=== PATIENT | male | born 1930 | race Caucasian/White ===

== ENCOUNTER 2017-06-27 01:11 | Observation (INO) | payer MEDICARE ==
[2017-06-27] MEDS ORDERED: METHYLPREDNISOLONE PF 125MG/VIAL IVP ONE (01:34)
[2017-06-27] MEDS ORDERED: IPRATROPIUM/ALBUTEROL (0.5MG/3MG) NEB INH ONE (01:34)
--- NOTE | 2017-06-27 01:40 | Emergency Department Record ---
History of Present Illness - General Chief Complaint: Shortness of breath Stated Complaint: LIVIA Time Seen by Provider: 06/27/17 01:19 Source: Patient Mode of Arrival: Ambulatory Limitations: No limitations - History of Present Illness Initial Comments: pt states hes got the worst cough hes ever had that is productive yellow. no fevers, sweats or chills. no chest pain MD Complaint: Cough, Shortness of breath Onset/Timin -: Days(s) Severity: Moderate Consistency: Constant Improves With: Nothing Worsens With: Coughing Context: Recent illness Associated Symptoms: Cough, Sputum production Treatments Prior to Arrival: Other Treatment Prior to Arrival Comment:: NYQUIL - Related Data Home Medications Medication Instructions Recorded Confirmed Last Taken Tamsulosin HCl [Flomax] 0.4 mg PO DAILY 06/27/17 06/27/17 Unknown Allergies Allergy/AdvReac Type Severity Reaction Status Date / Time No Known Drug Allergies Allergy Verified 01/27/15 16:05 Travel Screening - Travel/Exposure Within Last 30 Days Have you traveled within the last 30 days?: No - Travel Symptoms Symptom Screening: None Review of Systems Reviewed: No additional complaints except as noted below Constitutional: Reports: As per HPI. Denies: Chills, Fever, Malaise, Night sweats, Weakness, Weight change Eyes: Reports: As per HPI. Denies: Eye discharge, Eye pain, Photophobia, Vision change ENT: Reports: As per HPI. Denies: Congestion, Dental pain, Ear pain, Epistaxis , Hearing loss, Throat pain Respiratory: Reports: As per HPI. Denies: Cough, Dyspnea, Hemoptysis, Stridor, Wheezes Cardiovascular: Reports: As per HPI. Denies: Arrhythmia, Chest pain, Dyspnea on exertion, Edema, Murmurs, Orthopnea, Palpitations, Paroxysmal nocturnal dyspnea, Rheumatic Fever, Syncope Endocrine: Reports: As per HPI. Denies: Fatigue, Heat or cold intolerance, Polydipsia, Polyuria Gastrointestinal: Reports: As per HPI. Denies: Abdominal pain, Constipation, Diarrhea, Hematemesis, Hematochezia, Melena, Nausea, Vomiting Genitourinary: Reports: As per HPI. Denies: Dysuria, Frequency, Hematuria, Incontinence, Retention, Testicular pain, Testicular mass, Urgency Musculoskeletal: Reports: As per HPI. Denies: Arthralgia, Back pain, Gout, Joint swelling, Myalgia, Neck pain Skin: Reports: As per HPI. Denies: Bruising, Change in color, Change in hair/ nails, Lesions, Pruritus, Rash Neurological: Reports: As per HPI. Denies: Abnormal gait, Confusion, Headache, Numbness, Paresthesias, Seizure, Tingling, Tremors, Vertigo, Weakness Psychiatric: Reports: As per HPI. Denies: Anxiety, Auditory hallucinations, Depression, Homicidal thoughts, Suicidal thoughts, Visual hallucinations Hematological/Lymphatic: Reports: As per HPI. Denies: Anemia, Blood Clots, Easy bleeding, Easy bruising, Swollen glands Past Medical History - SOCIAL HISTORY Smoking Status: Former smoker Alcohol Use: None Drug Use: None - RESPIRATORY Hx Respiratory Disorders: No - CARDIOVASCULAR Hx Cardio Disorders: Yes Hx Cardiac Cath: Yes Hx Heart Attack: Yes Hx Vascular Disease: Yes - NEURO Hx Neuro Disorders: No - GI Hx GI Disorders: Yes Hx Reflux: Yes Comment:: AAA - Hx Genitourinary Disorders: Yes Hx Bladder Problem: Yes Hx Prostate Problems: Yes - ENDOCRINE Hx Endocrine Disorders: No Hx Diabetes: No Hx Thyroid Disease: No - MUSCULOSKELETAL Hx Musculoskeletal Disorders: Yes Hx Back Injury: Yes - PSYCH Hx Psych Problems: No - HEMATOLOGY/ONCOLOGY Hx Hematology/Oncology Disorders: No Family Medical History Any Significant Family History?: No Physical Exam - General General Appearance: Alert, Oriented x3, Cooperative, Mild distress - Head Head exam: Normal inspection - Eye Eye exam: Normal appearance, PERRL, EOMI Pupils: Normal accommodation - ENT ENT exam: Normal exam, Mucous membranes moist, Normal external ear exam, Normal orophraynx Ear exam: Normal external inspection. negative: External canal tenderness Nasal Exam: Normal inspection. negative: Discharge, Sinus tenderness Mouth exam: Normal external inspection, Tongue normal Teeth exam: Normal inspection. negative: Dental caries Throat exam: Normal inspection. negative: Tonsillar erythema, Tonsillar exudate - Neck Neck exam: Normal inspection, Full ROM. negative: Tenderness - Respiratory Respiratory exam: Normal lung sounds bilaterally. negative: Respiratory distress - Cardiovascular Cardiovascular Exam: Regular rate, Normal rhythm, Normal heart sounds - GI/Abdominal GI/Abdominal exam: Soft, Normal bowel sounds. negative: Tenderness - Rectal Rectal exam: Deferred - exam: Deferred - Extremities Extremities exam: Normal inspection, Full ROM, Normal capillary refill. negative: Tenderness - Back Back exam: Reports: Normal inspection, Full ROM. Denies: Muscle spasm, Rash noted, Tenderness - Neurological Neurological exam: Alert, CN II-XII intact, Normal gait, Oriented X3 - Psychiatric Psychiatric exam: Normal affect, Normal mood - Skin Skin exam: Dry, Intact, Normal color, Warm Course Vital Signs 06/27/17 01:18 Temperature 97.5 F L Pulse Rate [ 68 Pulse Ox Probe] Respiratory 20 Rate Blood Pressure 151/108 [Left Arm] Pulse Ox 99 Medical Decision Making - Lab Data Result diagrams: 06/27/17 01:25 06/27/17 01:25 Disposition Disposition: Admit Decision to Admit: Admit from ER Decision to Admit Date: 06/27/17 Decision to Admit Time: 03:20 Forms: Patient Portal Access Quality - Quality Measures Quality Measures: N/A - Blood Pressure Screening Does Patient Have Any of the Following: No Blood Pressure Classification: Normal BP Reading Systolic Measurement: 117 Diastolic Measurement: 71 Screening for High Blood Pressure: < Normal BP, F/U Not Required > [G8783]
[2017-06-27 01:43] LABS: BASO % 0.2 % (0-6); EOS % 2.8 % (0-6); HEMOGLOBIN 11.1 gm/dl (14.0-18.0); LYMPH % 26.2 % (16-45); MEAN CELL VOLUME 102.9 fl (81-97); MEAN CORPUSCULAR HEMOGLOBIN 32.6 pg (27-33); MEAN CORPUSCULAR HGB CONC 31.7 g/dl (32-36); MEAN PLATELET VOLUME 10.3 fl (7.4-10.4); MONO % 9.8 % (0-9); PLATELET COUNT 166 K/uL (130-400); RED CELL DISTRIBUTION WIDTH 13.4 % (11.5-14.5); WHITE BLOOD COUNT W/O DIFF 9.4 K/uL (4.2-12.2)
[2017-06-27 01:55] LABS: BLOOD UREA NITROGEN 27 mg/dL (8-23); CREATININE 1.1 mg/dL (0.7-1.2); EST GLOMERULAR FILTRATION RATE > 60 mL/min
[2017-06-27 01:58] LABS: GLUCOSE,RANDOM 115 mg/dL (74-109)
[2017-06-27 02:06] LABS: INFLUENZA A NEGATIVE (NEGATIVE); INFLUENZA B NEGATIVE (NEGATIVE)
[2017-06-27] MEDS ORDERED: CEFTRIAXONE SODIUM 1 GM in 0.9 % SODIUM CHLORIDE 100ML 100 ML IVPB ONE (03:17)
[2017-06-27] MEDS ORDERED: AZITHROMYCIN 500 MG TABLET PO ONE (03:18)
[2017-06-27] MEDS ORDERED: ACETAMINOPHEN 500 MG TABLET PO PRN (04:03)
[2017-06-27] MEDS ORDERED: FLU VAC QS 2017-18 (INPT, 6MO+) 60MCG/0.5ML IM ONE (04:32)
[2017-06-27] MEDS ORDERED: SYNTHROID (DAW) 175MCG TABLET PO SCH (07:00)
[2017-06-27] MEDS ORDERED: DORZOLAMIDE HCL OP SCH (10:00)
[2017-06-27] MEDS ORDERED: TAMSULOSIN HCL 0.4 MG CAP.ER.24H PO SCH (10:00)
[2017-06-27] MEDS ORDERED: ASPIRIN 81 MG CHEWABLE TABLET PO SCH (10:00)
[2017-06-27] MEDS ORDERED: BRIMONIDINE TARTRATE OP SCH (10:00)
[2017-06-27] MEDS ORDERED: HYDROCHLOROTHIAZIDE 25 MG TABLET PO SCH (10:00)
[2017-06-27] MEDS ORDERED: PILOCARPINE HCL OP SCH (10:00)
[2017-06-27] MEDS ORDERED: METOPROLOL TART 25 MG TABLET PO SCH (10:00)
[2017-06-27] MEDS ORDERED: AMLODIPINE BESYLATE 5MG TAB PO SCH (10:00)
[2017-06-27] MEDS ORDERED: TIMOLOL MALEAT OP SCH (10:00)
[2017-06-27] MEDS ORDERED: LISINOPRIL PO SCH (10:00)
--- NOTE | 2017-06-27 10:33 | History & Physical ---
History of Present Illness - Date of Service Date of Service for History & Physical: 06/27/17 - History of Present Illness Admitting Diagnosis: lll pneumonia w intermittant hypoxia History of Present Illness: All is an 86 year-old male who presented to the ED on 06/26/17 with c/o productive cough with yellow sputum. He denied fever, chills, and chest pain. His history includes: ex-smoker, AAA, heart cath, GERD, and BPH. In the ED, his vital signs were: BP 151/108, HR 68, RR 20, T 97.5F and pulse ox of 99% on room air. Chest xray revealed a LLL pneumonia. CBC and CMP unremarkable. Influenza negative. EKG normal. He was admitted observation for pneumonia, he was started on azithromycin and rocephin. 06/27/17: Pt. states he feels great and he expresses his desire to go home. He is accompanied by his daughter and 2 granddaughters. Per nursing- pt. holds on to barnes ambulating, refuses to try a walker. Pt. denies history of falls or need for assistive devices, however, [facility] chart reveals a fall in 2014 and family states he as fallen. Plan to change abx to PO and discharge home today with home PT set up for evaluation, possible need for walker/home modifications. Travel Screening - Travel/Exposure Within Last 30 Days Have you traveled within the last 30 days?: No - Travel/Exposure Within Last Year Have you traveled outside the [place] in the last year?: No - Additonal Travel Details Have you been exposed to anyone with a communicable illness?: No - Travel Symptoms Symptom Screening: None, Fatigue Review of Systems Constitutional: Reports: As per HPI. Denies: Chills, Fever, Malaise, Night sweats, Weakness, Weight change Eyes: Reports: As per HPI. Denies: Eye discharge, Eye pain, Photophobia, Vision change ENT: Reports: As per HPI. Denies: Congestion, Dental pain, Ear pain, Epistaxis , Hearing loss, Throat pain Respiratory: Reports: Cough. Denies: Dyspnea, Hemoptysis, Stridor, Wheezes Cardiovascular: Reports: As per HPI. Denies: Arrhythmia, Chest pain, Dyspnea on exertion, Edema, Murmurs, Orthopnea, Palpitations, Paroxysmal nocturnal dyspnea, Rheumatic Fever, Syncope Endocrine: Reports: As per HPI. Denies: Fatigue, Heat or cold intolerance, Polydipsia, Polyuria Gastrointestinal: Reports: As per HPI. Denies: Abdominal pain, Constipation, Diarrhea, Hematemesis, Hematochezia, Melena, Nausea, Vomiting Genitourinary: Reports: As per HPI. Denies: Dysuria, Frequency, Hematuria, Incontinence, Retention, Testicular pain, Testicular mass, Urgency Musculoskeletal: Reports: As per HPI. Denies: Arthralgia, Back pain, Gout, Joint swelling, Myalgia, Neck pain Skin: Reports: As per HPI. Denies: Bruising, Change in color, Change in hair/ nails, Lesions, Pruritus, Rash Neurological: Reports: As per HPI. Denies: Abnormal gait, Confusion, Headache, Numbness, Paresthesias, Seizure, Tingling, Tremors, Vertigo, Weakness Psychiatric: Reports: As per HPI. Denies: Anxiety, Auditory hallucinations, Depression, Homicidal thoughts, Suicidal thoughts, Visual hallucinations Hematological/Lymphatic: Reports: As per HPI. Denies: Anemia, Blood Clots, Easy bleeding, Easy bruising, Swollen glands Past Medical History - SOCIAL HISTORY Smoking Status: Former smoker Alcohol Use: None Drug Use: None - RESPIRATORY Hx Respiratory Disorders: No - CARDIOVASCULAR Hx Cardio Disorders: Yes Hx Cardiac Cath: Yes Hx Heart Attack: Yes Hx Vascular Disease: Yes - NEURO Hx Neuro Disorders: No - GI Hx GI Disorders: Yes Hx Reflux: Yes Comment:: AAA - Hx Genitourinary Disorders: Yes Hx Bladder Problem: Yes Hx Prostate Problems: Yes - ENDOCRINE Hx Endocrine Disorders: Yes Hx Diabetes: No Hx Thyroid Disease: Yes - MUSCULOSKELETAL Hx Musculoskeletal Disorders: Yes Hx Back Injury: Yes - PSYCH Hx Psych Problems: No - HEMATOLOGY/ONCOLOGY Hx Hematology/Oncology Disorders: No Family Medical History Any Significant Family History?: No H&P Meds/Allergies - Allergies Allergies: Allergies Allergy/AdvReac Type Severity Reaction Status Date / Time No Known Drug Allergies Allergy Verified 01/27/15 16:05 - Home Medications Home Medications Medication Instructions Recorded Confirmed Last Taken Tamsulosin HCl [Flomax] 0.4 mg PO DAILY 06/27/17 06/27/17 Unknown Previous Rx's Medication Instructions Recorded Azithromycin [Zithromax] 250 mg PO DAILY #4 tab 06/27/17 Cefdinir 300 mg PO BID #9 capsule 06/27/17 Guaifenesin [Mucinex] 600 mg PO BID #14 tabcr 06/27/17 - Active Medications Active Medications: Current Medications Acetaminophen (Tylenol 500mg Tab) 1,000 mg PO Q6H PRN PRN Reason: PAIN/TEMP Amlodipine Besylate (Norvasc) 10 mg PO DAILY [facility] Last Admin: 06/27/17 10:04 Dose: 10 mg Aspirin (Aspirin Chewable) 81 mg PO DAILY [facility] Last Admin: 06/27/17 10:05 Dose: 81 mg Atorvastatin Calcium (Lipitor) 10 mg PO QHS [facility] Azithromycin (Zithromax) 250 mg PO DAILY [facility] Stop: 07/02/17 10:01 Cefdinir (Cefdinir) 300 mg PO BID [facility] Stop: 07/01/17 22:01 Hydrochlorothiazide (Hctz 25mg) 25 mg PO DAILY [facility] Last Admin: 06/27/17 10:04 Dose: 25 mg Levothyroxine Sodium (Synthroid) 175 mcg PO DAILYTHY [facility] Last Admin: 06/27/17 07:52 Dose: 175 mcg Metoprolol Tartrate (Lopressor) 25 mg PO BID [facility] Last Admin: 06/27/17 10:04 Dose: 25 mg Non-Formulary Medication (Brimonidine Tartrate [Brimonidine Tartrate]) 1 drop OP TID [facility] Non-Formulary Medication (Dorzolamide Hcl/Timolol Maleat [Cosopt Eye Drops]) 1 drop OP BID [facility] Non-Formulary Medication (Lisinopril [Zestril]) 2 tab PO DAILY [facility] Non-Formulary Medication (Pilocarpine Hcl [Isopto Carpine]) 1 drop OP TID [facility] Non-Formulary Medication (Terazosin Hcl [Terazosin Hcl]) 2 tab PO QHS [facility] Tamsulosin HCl (Flomax) 0.4 mg PO DAILY [facility] Last Admin: 06/27/17 10:05 Dose: 0.4 mg Physical Exam - Vital Signs Vital Signs: Vital Signs - Last 24 Hrs Temp Pulse Resp BP Pulse Ox 06/27/17 10:00 97.9 F 69 16 143/62 94 L 06/27/17 05:30 97 06/27/17 04:17 97.6 F 64 19 115/54 95 - General General Appearance: Alert, Oriented x3, Cooperative, No acute distress Limitations: Other (uses barnes/furniture for help ambulating) - Head Head exam: Normal inspection - Eye Eye exam: Normal appearance, PERRL, EOMI Pupils: Normal accommodation - ENT ENT exam: Normal exam, Mucous membranes moist, Normal external ear exam, Normal orophraynx Ear exam: Normal external inspection. negative: External canal tenderness Nasal Exam: Normal inspection. negative: Discharge, Sinus tenderness Mouth exam: Normal external inspection, Tongue normal Teeth exam: Normal inspection. negative: Dental caries Throat exam: Normal inspection. negative: Tonsillar erythema, Tonsillar exudate - Neck Neck exam: Normal inspection, Full ROM. negative: Tenderness - Respiratory Respiratory exam: Normal lung sounds bilaterally. negative: Respiratory distress - Cardiovascular Cardiovascular Exam: Regular rate, Normal rhythm, Normal heart sounds - GI/Abdominal GI/Abdominal exam: Soft, Normal bowel sounds. negative: Tenderness - Rectal Rectal exam: Deferred - exam: Deferred - Extremities Extremities exam: Normal inspection, Full ROM, Normal capillary refill. negative: Tenderness - Back Back exam: Reports: Normal inspection, Full ROM. Denies: Muscle spasm, Rash noted, Tenderness - Neurological Neurological exam: Alert, CN II-XII intact, Normal gait, Oriented X3 - Psychiatric Psychiatric exam: Normal affect, Normal mood - Skin Skin exam: Dry, Intact, Normal color, Warm Results - Labs Result Diagrams: 06/27/17 01:25 06/27/17 01:25 - Imaging and Cardiology Chest x-ray Status: Pending, Image reviewed Additional Comments: LLL pneumonia VTE H&P Assessment - Risk for VTE Risk for VTE: Yes Risk Level: Low Risk Assessment Date: 06/27/17 Risk Assessment Time: 10:29 VTE Orders Placed or Will Be Placed: No VTE Reason for No Prophylaxis: Not Indicated (Pt. will be discharged home this afternoon, mobility not impaired) Plan - Detailed Diagnosis and Plan (1) Left lower lobe pneumonia Status: Acute Base Code: J18.1 - LOBAR PNEUMONIA, UNSPECIFIED ORGANISM Comment: 06/27/17: Pt. presented to the ED on evening of 06/26/17 with shortness of breath and cough. Chest xray image revealed LLL pneumonia. 1g rocephin and 500mg azithromycin administered in the ED, changed to PO today and plan to d/c home this afternoon. Pt's vital signs and labs have remained stable. (2) Weakness Status: Acute Base Code: R53.1 - WEAKNESS Comment: 06/27/17: Nursing staff noted that pt. using barnes/furniture for help ambulating, pt. refuses to use a walker. Pt. denies hx of fall, however, he has an ED visist in 2015 for a fall and family states he has fallen. Plan to d/c with home PT to evaluate for need for assistive devices/home modifications. (3) At risk for deep venous thrombosis Status: Acute Base Code: Z91.89 - [facility] PERSONAL RISK FACTORS, NOT ELSEWHERE CLASSIFIED Comment: 06/27/17: Pt. is at low risk for DVT based on age and comorbidities. Mobility not impaired at this time, plan to d/c home today. Will start lovenox if pt. admitted greater than 24 hours. (4) Full code status Status: Acute Base Code: Z78.9 - OTHER SPECIFIED HEALTH STATUS Comment: 06/27: Pt. is a full code
--- NOTE | 2017-06-27 10:34 | Discharge Summary ---
Providers Discharge Summary Date: 06/27/17 Date of admission: 06/27/17 03:46 Expected Date of Discharge: 06/27/17 Attending physician: DANNY SIERRA Primary care physician: KATHRYN gomez Sevier Physical Exam - Vital Signs Vital Signs: Vital Signs - Last 24 Hrs Temp Pulse Resp BP Pulse Ox 06/27/17 10:00 97.9 F 69 16 143/62 94 L 06/27/17 05:30 97 06/27/17 04:17 97.6 F 64 19 115/54 95 - General General Appearance: Alert, Oriented x3, Cooperative, Mild distress Limitations: No limitations - Head Head exam: Normal inspection - Eye Eye exam: Normal appearance, PERRL, EOMI Pupils: Normal accommodation - ENT ENT exam: Normal exam, Mucous membranes moist, Normal external ear exam, Normal orophraynx Ear exam: Normal external inspection. negative: External canal tenderness Nasal Exam: Normal inspection. negative: Discharge, Sinus tenderness Mouth exam: Normal external inspection, Tongue normal Teeth exam: Normal inspection. negative: Dental caries Throat exam: Normal inspection. negative: Tonsillar erythema, Tonsillar exudate - Neck Neck exam: Normal inspection, Full ROM. negative: Tenderness - Respiratory Respiratory exam: Normal lung sounds bilaterally. negative: Respiratory distress - Cardiovascular Cardiovascular Exam: Regular rate, Normal rhythm, Normal heart sounds - GI/Abdominal GI/Abdominal exam: Soft, Normal bowel sounds. negative: Tenderness - Rectal Rectal exam: Deferred - exam: Deferred - Extremities Extremities exam: Normal inspection, Full ROM, Normal capillary refill. negative: Tenderness - Back Back exam: Reports: Normal inspection, Full ROM. Denies: Muscle spasm, Rash noted, Tenderness - Neurological Neurological exam: Alert, CN II-XII intact, Normal gait, Oriented X3 - Psychiatric Psychiatric exam: Normal affect, Normal mood - Skin Skin exam: Dry, Intact, Normal color, Warm Hospitalization - Hospitalization Admission Diagnosis: lll pneumonia w intermittant hypoxia - Problem List/Discharge Diagnosis (1) Left lower lobe pneumonia Status: Acute Base Code: J18.1 - LOBAR PNEUMONIA, UNSPECIFIED ORGANISM Comment: 06/27/17: Pt. presented to the ED on evening of 06/26/17 with shortness of breath and cough. Chest xray image revealed LLL pneumonia. 1g rocephin and 500mg azithromycin administered in the ED, changed to PO today and plan to d/c home this afternoon. Pt's vital signs and labs have remained stable. (2) Weakness Status: Acute Base Code: R53.1 - WEAKNESS Comment: 06/27/17: Nursing staff noted that pt. using barnes/furniture for help ambulating, pt. refuses to use a walker. Pt. denies hx of fall, however, he has an ED visist in 2015 for a fall and family states he has fallen. Plan to d/c with home PT to evaluate for need for assistive devices/home modifications. (3) At risk for deep venous thrombosis Status: Acute Base Code: Z91.89 - OTH PERSONAL RISK FACTORS, NOT ELSEWHERE CLASSIFIED Comment: 06/27/17: Pt. is at low risk for DVT based on age and comorbidities. Mobility not impaired at this time, plan to d/c home today. Will start lovenox if pt. admitted greater than 24 hours. (4) Full code status Status: Acute Base Code: Z78.9 - OTHER SPECIFIED HEALTH STATUS Comment: 06/27: Pt. is a full code - Hospitalization Course Disposition: Home Health Service Hospital Course: All is an 86 year-old male who presented to the ED on 06/26/17 with c/o productive cough with yellow sputum. He denied fever, chills, and chest pain. His history includes: ex-smoker, AAA, heart cath, GERD, and BPH. In the ED, his vital signs were: BP 151/108, HR 68, RR 20, T 97.5F and pulse ox of 99% on room air. Chest xray revealed a LLL pneumonia. CBC and CMP unremarkable. Influenza negative. EKG normal. He was admitted observation for pneumonia, he was started on azithromycin and rocephin. 06/27/17: Pt. states he feels great and he expresses his desire to go home. He is accompanied by his daughter and 2 granddaughters. Per nursing- pt. holds on to barnes ambulating, refuses to try a walker. Pt. denies history of falls or need for assistive devices, however, [facility] chart reveals a fall in 2014 and family states he as fallen. Plan to change abx to PO and discharge home today with home PT set up for evaluation, possible need for walker/home modifications. Condition at Discharge: (2) Stable Discharge Diagnosis: LLL pneumonia VTE Discharge VTE Reason For No Overlap Therapy: Treatment Not Tolerated (Mobility not impaired) Discharge Medications - Discharge Medications Prescriptions: Azithromycin [Zithromax] 250 mg PO DAILY #4 tab Cefdinir 300 mg PO BID #9 capsule Guaifenesin [Mucinex] 600 mg PO BID #14 tabcr Home Medications: Ambulatory Orders Aspirin Chewable 81 mg PO DAILY 08/15/13 [Last Taken 01/27/15] Atorvastatin Calcium [Lipitor] 10 mg PO QHS 08/15/13 [Last Taken 01/27/15] Brimonidine Tartrate 1 drop OP TID 08/15/13 [Last Taken 01/27/15] Dorzolamide HCl/Timolol Maleat [Cosopt Eye Drops] 1 drop OP BID 08/15/13 [Last Taken 01/27/15] Hydrochlorothiazide [Hctz] 25 mg PO DAILY 08/15/13 [Last Taken 01/27/15] Levothyroxine Sodium [Levoxyl] 175 mcg PO DAILY 08/15/13 [Last Taken 01/27/15] Lisinopril [Zestril] 2 tab PO DAILY 08/15/13 [Last Taken 01/27/15] Metoprolol Tartrate [Lopressor] 25 mg PO BID 08/15/13 [Last Taken 01/27/15] Pilocarpine HCl [Isopto Carpine] 1 drop OP TID 08/15/13 [Last Taken 01/27/15] Terazosin HCl 2 tab PO QHS 08/15/13 [Last Taken 01/27/15] Amlodipine Besylate [Norvasc] 10 mg PO DAILY 01/27/15 [Last Taken 01/27/15] Azithromycin [Zithromax] 250 mg PO DAILY #4 tab 06/27/17 [Last Taken Unknown] Cefdinir 300 mg PO BID #9 capsule 06/27/17 [Last Taken Unknown] Guaifenesin [Mucinex] 600 mg PO BID #14 tabcr 06/27/17 [Last Taken Unknown] Tamsulosin HCl [Flomax] 0.4 mg PO DAILY 06/27/17 [Last Taken Unknown] Discharge Plan - Discharge Instructions Activity at Discharge: As Per Physical Therapy (Home physical therapy will be arranged), Increase Activity as Tolerated Diet at Discharge: Regular Diet Instructions: Bacterial Pneumonia (DC) Additional Inst[facility] and make a hospitalization follow up appointment within 5 days Return to the ED if you experience any worsening shortness of breath, fever, weakness, or for any chest pain [facility] [phone] will call Thursday Quality Measures - Quality Measures Quality Measures: Advance Directives, Documentation of Current Medications in Medical Record, Elder Maltreatment Screen and Follow-Up Plan, Screening for High Blood Pressure and F/U Documented - Current Medications Quality Measure: Measure #130: Documentation of Current Medications Documentation of Current Medications: <Current Medications Documented/Reviewed> [G8427] - Blood Pressure Screening Quality Measure: Screening for High Blood Pressure and Follow-Up Documented Does Patient Have Any of the Following: Active Dx of HTN Blood Pressure Classification: Pre-Hypertensive BP Reading Systolic Measurement: 124 Diastolic Measurement: 58 Screening for High Blood Pressure: Patient Exclusion, Hx of HTN [G9744] - Advance Directives Quality Measure: Measure #47: Care Plan Advance Directives Established: Yes Advance Directives Information Provided To Patient: No Advance Directives on File: No Living Will: Yes Power of Asphalt Tamper: Yes Power of Asphalt Tamper Name: Alicia Vigil Advance Care Planning: <Care Plan/Decision Maker Documented; Discussed & Documented> [[id number]] - Elder Abuse Suspicion Index Screening: Elder Abuse Suspicion Index Screening Rely on people for bathing, dressing, shopping, banking, etc: No Prevented from getting food, clothes, medication, etc: No Made to feel shamed or threatened by someone: No Forced to sign papers or use money against will: No Feel afraid, touched in ways not wanted or hurt physically: No Poor eye contact, withdrawn, malnourished, cuts or bruises: No Screening Result: Negative result EASI Reference Information: Edi PARKER, Edwin C, Jackson D, Mao M.Development and validation of a tool to assist physicians identification of elder abuse: The Elder Abuse Suspicion Index (EASI ). Journal of Elder Abuse and Neglect, 2008; 20 (3): 276-300. - Elder Maltreatment Screen Quality Measures: Elder Maltreatment Screen and Follow-Up Plan Elder Maltreatment Screen: <Negative, No Follow-Up Plan Required> [G8734]
[2017-06-27] MEDS ORDERED: CEFDINIR 300 MG CAPSULE PO ONE (11:50)
[2017-06-27] MEDS ORDERED: CEFDINIR 300 MG CAPSULE PO SCH (22:00)
[2017-06-27] MEDS ORDERED: GUAIFENESIN 600 MG TABCR PO SCH (22:00)
[2017-06-27] MEDS ORDERED: ATORVASTATIN 20 MG TABLET PO SCH (22:00)
[2017-06-27] MEDS ORDERED: TERAZOSIN HCL PO SCH (22:00)
[2017-06-28] MEDS ORDERED: CEFTRIAXONE SODIUM 1 GM in 0.9 % SODIUM CHLORIDE 100ML 100 ML IVPB SCH (03:00)
[2017-06-28] MEDS ORDERED: AZITHROMYCIN 500 MG in 0.9 % SODIUM CHLORIDE 250ML 250 ML IVPB SCH (04:00)
[2017-06-28] MEDS ORDERED: AZITHROMYCIN 250 MG TABLET PO SCH (10:00)
--- NOTE | 2017-06-29 06:38 | RADIOLOGY REPORT ---
DATE: 06/27/2017 at 0221. EXAM: CHEST, TWO VIEWS. HISTORY: Cough. TECHNIQUE: Upright PA and lateral views of the chest. COMPARISON: CT of the chest with contrast dated 01/27/2015. FINDINGS: Post median sternotomy changes are redemonstrated. The heart is not enlarged. No pulmonary venous hypertension is seen. No confluent air space opacity is identified. There is possible minimal linear scarring in the anterior lung base region as seen on the lateral view only. The lungs are hyperinflated consistent with chronic obstructive pulmonary disease. There are degenerative changes scattered within the visualized spine associated with accentuation of the normal thoracic kyphosis. IMPRESSION: 1. POST MEDIAN STERNOTOMY CHANGES. 2. NO EVIDENCE OF AN ACUTE INTRATHORACIC PROCESS. 3. MILD HYPERINFLATION OF THE LUNGS CONSISTENT WITH CHRONIC OBSTRUCTIVE PULMONARY DISEASE. JOB NUMBER: [id number] MTDD
== END 2017-06-27 12:03 | disposition home health service (06) ==
LOC: ER 01:11 → MEDSURG 03:46
PROVIDERS: ADMIT Internal Medicine; ATTEND Internal Medicine
DX: J18.1 Lobar pneumonia, unspecified organism (principal); R09.02 Hypoxemia; R06.02 Shortness of breath; R05 Cough; I71.4 Abdominal aortic aneurysm, without rupture; I25.2 Old myocardial infarction
CPT/HCPCS: 85025; 80048; 87400; 83880; 71046; 94640; 93005; 93010; 90686; G0378; J3490; 96365; 96374; 99285; 99291; J2930

== ENCOUNTER 2017-11-02 08:51 | Emergency (ER) | payer MEDICARE, OTHER ==
--- NOTE | 2017-11-02 09:54 | Emergency Department Record ---
History of Present Illness - General Chief complaint: Extremity Problem Stated complaint: TOE INFECTION Time Seen by Provider: 11/02/17 09:06 Source: Patient, Family Mode of Arrival: Wheelchair Limitations: No limitations - History of Present Illness Initial comments: pt was getting nails clipped weeks ago when the clippers cut his toe. it still has not heeled and he has been back to the physician multiple times. he has been on an unknown antibioic 3 x. he has a hx of fempopbypass and poor circulation Complaint: Extremity pain Onset/Timin -: Month(s) Location: Left, Foot Radiation: None Severity scale (1-10): 10 Consistency: Constant Improves with: Nothing Worsens with: Walking Associated Symptoms: Denies other symptoms - Related Data Allergies Allergy/AdvReac Type Severity Reaction Status Date / Time No Known Drug Allergies Allergy Verified 01/27/15 16:05 Travel Screening - Travel/Exposure Within Last 30 Days Have you traveled within the last 30 days?: No Review of Systems Reviewed: No additional complaints except as noted below Constitutional: Reports: As per HPI. Denies: Chills, Fever, Malaise, Night sweats, Weakness, Weight change Eyes: Reports: As per HPI. Denies: Eye discharge, Eye pain, Photophobia, Vision change ENT: Reports: As per HPI. Denies: Congestion, Dental pain, Ear pain, Epistaxis , Hearing loss, Throat pain Respiratory: Reports: As per HPI. Denies: Cough, Dyspnea, Hemoptysis, Stridor, Wheezes Cardiovascular: Reports: As per HPI. Denies: Arrhythmia, Chest pain, Dyspnea on exertion, Edema, Murmurs, Orthopnea, Palpitations, Paroxysmal nocturnal dyspnea, Rheumatic Fever, Syncope Endocrine: Reports: As per HPI. Denies: Fatigue, Heat or cold intolerance, Polydipsia, Polyuria Gastrointestinal: Reports: As per HPI. Denies: Abdominal pain, Constipation, Diarrhea, Hematemesis, Hematochezia, Melena, Nausea, Vomiting Genitourinary: Reports: As per HPI. Denies: Dysuria, Frequency, Hematuria, Incontinence, Retention, Testicular pain, Testicular mass, Urgency Musculoskeletal: Reports: As per HPI. Denies: Arthralgia, Back pain, Gout, Joint swelling, Myalgia, Neck pain Skin: Reports: As per HPI. Denies: Bruising, Change in color, Change in hair/ nails, Lesions, Pruritus, Rash Neurological: Reports: As per HPI. Denies: Abnormal gait, Confusion, Headache, Numbness, Paresthesias, Seizure, Tingling, Tremors, Vertigo, Weakness Psychiatric: Reports: As per HPI. Denies: Anxiety, Auditory hallucinations, Depression, Homicidal thoughts, Suicidal thoughts, Visual hallucinations Hematological/Lymphatic: Reports: As per HPI. Denies: Anemia, Blood Clots, Easy bleeding, Easy bruising, Swollen glands Past Medical History - SOCIAL HISTORY Smoking Status: Former smoker Alcohol Use: None Drug Use: None - RESPIRATORY Hx Respiratory Disorders: No - CARDIOVASCULAR Hx Cardio Disorders: Yes Hx Cardiac Cath: Yes Hx Heart Attack: Yes Hx Vascular Disease: Yes - NEURO Hx Neuro Disorders: No - GI Hx GI Disorders: Yes Hx Reflux: Yes Comment:: AAA - Hx Genitourinary Disorders: Yes Hx Bladder Problem: Yes Hx Prostate Problems: Yes - ENDOCRINE Hx Endocrine Disorders: Yes Hx Thyroid Disease: Yes - MUSCULOSKELETAL Hx Musculoskeletal Disorders: Yes Hx Back Injury: Yes - PSYCH Hx Psych Problems: No - HEMATOLOGY/ONCOLOGY Hx Hematology/Oncology Disorders: No Family Medical History Any Significant Family History?: No Physical Exam - General General Appearance: Alert, Oriented x3, Cooperative, Mild distress - Head Head exam: Normal inspection - Eye Eye exam: Normal appearance, PERRL, EOMI Pupils: Normal accommodation - ENT ENT exam: Normal exam, Mucous membranes moist, Normal external ear exam, Normal orophraynx, TM's normal bilaterally Ear exam: Normal external inspection. negative: External canal tenderness Nasal Exam: Normal inspection. negative: Discharge, Sinus tenderness Mouth exam: Normal external inspection, Tongue normal Teeth exam: Normal inspection. negative: Dental caries Throat exam: Normal inspection. negative: Tonsillar erythema, Tonsillar exudate - Neck Neck exam: Normal inspection, Full ROM. negative: Tenderness - Respiratory Respiratory exam: Normal lung sounds bilaterally. negative: Respiratory distress - Cardiovascular Cardiovascular Exam: Regular rate, Normal rhythm, Normal heart sounds - GI/Abdominal GI/Abdominal exam: Soft, Normal bowel sounds. negative: Tenderness - Rectal Rectal exam: Deferred - exam: Deferred - Extremities Extremities exam: Full ROM, Normal capillary refill, Tenderness Image of Feet: 1 - open ulcer 2 - decreased circulation, tenderness of toe - Back Back exam: Reports: Normal inspection, Full ROM. 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 Disposition: Acute Care Hospital Transfer Transfer To: [facility] Reason For Transfer: needs vascular surgery Accepting Physician: dr plata Time Discussed w/Accepting Physician: 11:42 Forms: Patient Portal Access Quality - Quality Measures Quality Measures: N/A - Blood Pressure Screening Does Patient Have Any of the Following: No Blood Pressure Classification: Pre-Hypertensive BP Reading Systolic Measurement: 121 Diastolic Measurement: 52 Screening for High Blood Pressure: < Pre-Hypertensive BP, F/U Documented > [ [id number]] Pre-Hypertensive Follow-up Interventions: Follow-up with rescreen every year.
--- NOTE | 2017-11-03 08:04 | RADIOLOGY REPORT ---
EXAM: LEFT FOOT HISTORY: PAIN. TECHNIQUE: Three views of the left foot were performed. FINDINGS: There is osteopenia. Large calcaneal spur. Peripheral vascular disease. No evidence of fracture or dislocation. No erosive change. IMPRESSION: 1. OSTEOPENIA. NO ACUTE PROCESS. 2. SOFT TISSUE SWELLING WITH PERIPHERAL VASCULAR DISEASE. JOB NUMBER: [id number] MTDD
--- NOTE | 2017-11-03 08:19 | US UNI ARTERIAL DOPPLER REPORT ---
EXAM: ARTERIAL DOPPLER OF THE LEFT LOWER EXTREMITY HISTORY: CLAUDICATION OF LEFT LOWER EXTREMITY. TECHNIQUE: Sonographic evaluation of the arterial vascular system of the left lower extremity was performed. FINDINGS: 3 Left Waveform Common Femoral Artery 35 cm/s Monophasic Profunda Femoral Artery 91 cm/s Monophasic Proximal Superficial Femoral Artery No flow identified Mid Superficial Femoral Artery 31 cm/s Monophasic Distal Superficial Femoral Artery 18 cm/s Monophasic Popliteal Artery 15 cm/s Anterior Tibial Artery No flow identified Posterior Tibial Artery No flow identified Peroneal Artery No flow identified Dorsalis Pedis Artery No flow identified IMPRESSION: SEVERE VASCULAR DISEASE OF THE ENTIRE LEFT LOWER EXTREMITY. NO FLOW IS IDENTIFIED PAST THE POPLITEAL ARTERY. JOB NUMBER: [id number] [facility]
== END 2017-11-02 12:45 | disposition short-term general hospital (02) ==
LOC: ER 08:51
DX: I70.292 Other atherosclerosis of native arteries of extremities, left leg (principal); I25.2 Old myocardial infarction; Z87.891 Personal history of nicotine dependence
CPT/HCPCS: 99285